=== PATIENT | female | born 1975 | race Two or more races ===

== ENCOUNTER 2019-11-02 09:24 | Emergency (ER) | payer MEDICAID, OTHER ==
[~2019-11-02] VITALS: Ht 165.1 cm; Wt 63.5 kg
[2019-11-02 10:32] LABS: Basophils # (auto) 0 uL; Eosinophils # (auto) 0.1 uL; Lymphocytes # (auto) 1.7 uL; Monocytes # (auto) 0.3 uL; Red Cell Distribution Width 18.1 % (11.8-14.3)
[2019-11-02 10:33] LABS: Basophils % (auto) 0.9 % (0.0-2.0); Mean Corpuscular Hemoglobin 25.4 pg (28.0-32.0); Mean Corpuscular Hgb Conc. 32.7 g/dL (32.0-36.0); Mean Corpuscular Volume 77.8 fL (80.0-100.0); Monocytes % (auto) 7.4 % (0.0-12.0); Neutrophils # (auto) 2.3 uL; Neutrophils % (auto) 50.7 % (37.0-80.0); Nucleated Red Blood Cells % 0.1 %; Platelet Count (auto) 388 10^3/uL (140-450); White Blood Cell 4.6 10^3/uL (4.4-10.8)
[2019-11-02 10:38] LABS: Hematocrit 26.1 % (36.0-46.0); Hemoglobin 8.5 g/dL (12.2-16.2); Red Blood Cells 3.36 10^6/uL (4.0-5.20)
[2019-11-02 10:39] LABS: Albumin 3.7 g/dL (3.4-5.0); Calcium 8.5 mg/dL (8.5-10.1); Potassium 4.1 mmol/L (3.5-5.1)
[2019-11-02 10:44] LABS: BUN/Creatinine Ratio 18.3; Bilirubin, Total 0.3 mg/dL (0.2-1.0); Total Protein 7.1 g/dL (6.4-8.2)
[2019-11-02] MEDS ORDERED: SODIUM CHLORIDE 0.9% 1,000 ML IV ONE (11:36)
[2019-11-02] MEDS ORDERED: KETOROLAC TROMETH 15 mg/ml 1ML VL IV ONE (11:45)
[2019-11-02 11:52] LABS: Urine Bacteria MANY /hpf (None Seen); Urine Blood Negative /uL (Negative); Urine Mucus FEW (None Seen); Urine Specific Gravity 1.013 (1.001-1.035); Urine WBC 28 /hpf (0 - 5)
[2019-11-02 12:00] VITALS: BP 114/67
== END 2019-11-02 12:27 | disposition home or self-care (01) ==
LOC: EDSEX 09:24 → ER 09:24 → EDBD 09:24 → ER 10:27
DX: N30.90 Cystitis, unspecified without hematuria (principal); Z98.51 Tubal ligation status
CPT/HCPCS: 36415; 74176; 80053; 81001; 85025; 96374; 99284; J1885; J7030